=== PATIENT | female | born 1980 | race Caucasian/White ===

== ENCOUNTER 2020-08-24 18:44 | Emergency (ER) | payer OTHER ==
--- NOTE | 2020-08-24 19:38 | RAD ---
Portable frontal chest radiograph: 08/24/2020 COMPARISON: None HISTORY: Chest pain FINDINGS: Lungs are clear. Heart and mediastinal contours appear within normal limits. IMPRESSION: No acute findings.
== END 2020-08-24 19:55 | disposition home or self-care (01) ==
LOC: ERS 18:44
DX: S20.214A Contusion of middle front wall of thorax, initial encounter (principal); Z87.891 Personal history of nicotine dependence; V49.9XXA Car occupant (driver) (passenger) injured in unspecified traffic accident, initial encounter
CPT/HCPCS: 71045; 93005

== ENCOUNTER 2023-04-06 15:03 | Outpatient (CLI) | payer OTHER | END 2023-04-06 15:04 | disposition home or self-care (01) | LOC: BICMAMMO 15:03 | PROVIDERS: ATTEND Family Medicine | DX: Z12.31 Encounter for screening mammogram for malignant neoplasm of breast (principal); Z98.890 Other specified postprocedural states | CPT/HCPCS: 77063; 77067 ==